=== PATIENT | female | born 1935 | race Caucasian/White ===

== ENCOUNTER 2016-04-01 23:34 | Emergency (ER) | payer OTHER ==
--- NOTE | 2016-04-02 01:09 | DIAGNOSTIC IMAGING REPORT ---
PROCEDURE: XR CHEST 1 VIEW INDICATION: SHORTNESS OF BREATH, initial encounter TECHNIQUE: Portable AP view 12:43 a.m. COMPARISON: Chest x-ray 08/27/2014 FINDINGS: Mild left basilar infiltrate. Heart and mediastinum are normal. Thorax is normal. IMPRESSION: 1. Left basilar pneumonia.
--- NOTE | 2016-04-02 06:08 | ED CLINICAL REPORT ---
Clinical Report - Physicians/Mid Levels Located Within [facility] [address] [place] [place] [address] 04/01/2016 23:35 Patient: SUSANA GRECO Time Seen: 23:37; initial patient contact. Arrived- By ambulance. Historian- patient. HISTORY OF PRESENT ILLNESS The patient has recovered. Chief Complaint: NEAR-SYNCOPE. This occurred just prior to arrival. Event was not witnessed. The patient had preceding symptoms of light-headedness. No preceding symptoms of nausea, dim vision, chest pain or abdominal pain. At time of event, she had just stood up. The patient felt faint. No loss of consciousness, seizure activity, incontinence or apnea noted. Did not collapse. Currently she has no symptoms. No injuries noted. Similar symptoms previously: None. Recent medical care: The patient was seen recently in the office (Dx'd w/ PNA and is on a Z pack). REVIEW OF SYSTEMS No headache, chest pain, palpitations, abdominal pain or vomiting. No diarrhea. She has had dizziness and weakness. All systems otherwise negative, except as recorded above. PAST HISTORY ( Unstable Angina. Headache. Hypercholesterolemia. Hypertension. Chest Pain. Arthritis. Gastroesophageal Reflux. Hyperlipidemia. SURGERIES: Appendectomy. Coronary Angioplasty. Esophageal Dilatation. Hysterectomy. Tonsillectomy.). Medications: Tramadol HCL Oral 50 mg. Crestor Oral 20 mg. Cyclobenzaprine HCl Oral 10 mg. OxyCODONE HCl Oral 5 mg. PredniSONE Oral 20 mg. Allergies: Flagyl. Penicillins. SOCIAL HISTORY Never smoker. No alcohol use or drug use. PHYSICAL EXAM Vital Signs: 04/01/2016 23:41 BP: 100/53. HR: 90. RR: 16. O2 saturation: 96%. Temp: 98 F. Have been reviewed. Hypotensive. Heart rate normal. Respiratory rate normal. Temperature normal. Oxygen saturation normal. Appearance: Alert. No acute distress. Eyes: Pupils equal, round and reactive to light. No nystagmus. Extraocular movements normal. ENT: Dry mucous membranes present. Neck: Normal inspection. CVS: Abnormal rhythm, which is irregularly irregular. Heart sounds normal. Rate normal. Respiratory: No respiratory distress. Mild rales in the left lung base posteriorly. Abdomen: Soft and nontender. No organomegaly. Skin: Poor skin turgor, mild. Skin warm and dry. Normal skin color. No rash. Extremities: No calf tenderness. No lower extremity edema. Neuro: Alert. Oriented X 3. Mood/affect normal. Speech normal. Cranial nerves normal (as tested). No cerebellar findings. No motor deficit. No sensory deficit. LABS, X-RAYS, AND EKG EKG: EKG time: (44). Atrial fibrillation (narrow-complex) (ventricular rate 93). Normal QRS complex. Normal axis. Normal ST and T waves, QT and QTc. Changes present when compared to prior EKG. (Aug 27 2014 Now has A fib). The study has been interpreted contemporaneously by me. The study has been independently viewed by me. The EKG appears to be a good tracing. I agree with and confirm the computer reading of the EKG. Interpretation time: 44. Chest X-ray: Patchy infiltrate in the left lower lobe. Consistent with pneumonia. Views: AP. Technique: good. The X-rays were independently viewed by me and interpreted contemporaneously by me. A comparison with prior films reveals that the findings are new. Interpretation time: 99. Laboratory Tests: UA-Culture if indicated: (YOSHI: 04/02/2016 02:15) ( MsgRcvd 04/02/2016 03:12) Final results Test Result Flag Units (Reference) URINE COLOR YELLOW URINE APPEARANCE CLEAR URINE GLUCOSE NEGATIVE (NEGATIVE) URINE BILIRUBIN NEGATIVE (NEGATIVE) URINE KETONE NEGATIVE (NEGATIVE) URINE SPECIFIC GRAVITY 1.025 (1.010-1.030) URINE PH 6.0 (5.0-8.0) URINE PROTEIN NEGATIVE (NEGATIVE) URINE UROBILINOGEN 0.2 EU/dL (0.2-1.0) URINE NITRITE NEGATIVE (NEGATIVE) URINE BLOOD 1+ (NEGATIVE) URINE LEUK ESTERASE NEGATIVE (NEGATIVE) URINE RBC 1-3 rbc/hpf (0-1) URINE WBC 0-1 wbc/hpf (0-1) URINE EPITHELIAL CELLS 3-5 EPI/hpf (0-5) URINE BACTERIA NONE SEEN (NONE SEEN) URINE COMMENT CULT NOT INDICATED URINE CULTURES ARE SET-UP BASED ON THE FOLLOWING CRITERIA:POSITIVE NITRITEPOSITIVE LEUKOCYTE ESTERASEGREATER THAN 10 WHITE BLOOD CELLSMODERATE (2+) OR GREATER BACTERIA CBC w Diff: (YOSHI: 04/02/2016 01:00) ( [facility] 01[facility]30) Final results Test Result Flag Units (Reference) WHITE BLOOD COUNT 8.1 K/uL (4.5-11.5) RED BLOOD COUNT 4.94 M/uL (4.00-5.20) HEMOGLOBIN 14.0 gm/dL (12.0-16.0) HEMATOCRIT 43.3 % (36.0-46.0) MEAN CELL VOLUME 88 fL (80-100) MEAN CORPUSCULAR HGB 28 pg (26-34) MEAN CORPUSCULAR HGB CONC 32 g/dL (31-37) RED CELL DISTRIBUTION WIDTH 14.9 H % (11.6-14.8) PLATELET COUNT 210 K/uL (150-400) NEUTROPHIL % 67.2 % (50-75) LYMPH % 22.5 L % (25-40) MONO % 9.8 % (3-14) EOSINOPHIL % 0.3 % (0-4) BASOPHIL % 0.2 % (0-2) [id number]: (YOSHI: 04/02/2016 01:00) ( [facility] 04/02/2016 01:54) Final results Test Result Flag Units (Reference) D-DIMER QUANTITATIVE 1.48 H ug/mLFEU (0.27-0.52) The primary value of this quantitative assay relates toits negative predictive value (i.e. exclusion) of pulmonaryembolism/deep vein thrombosis/DIC.Elevated levels of d-dimer may also occur with:, age, cancer, inflammation, liver disease,post-op, infection, hematoma, coronary disease, peripheralarteriopathy, bleeding disorders and thrombolytic treatment.Results should be correlated with other clinical andradiological data.Testing Methodology: Latex Immunoassay BNP: (YOSHI: 04/02/2016 01:00) ( [facility] 04/02/2016 02:03) Final results Test Result Flag Units (Reference) B-TYPE NATRIURETIC PEPTIDE 75.7 pg/ml (5-100) CHEM 13 PANEL: (YOSHI: 04/02/2016 01:00) ( MsgRcvd 04/02/2016 01:53) Final results Test Result Flag Units (Reference) GLUCOSE 126 H mg/dL (70-110) BUN 28 H mg/dL (7-18) CREATININE 1.5 H mg/dL (0.6-1.3) Estimated GFR 35.33 mL/min Estimated GFR- 42.83 mL/min Note: Persistent reduction over 3 months in eGFR<60 mL/min/1.73 m2 defines CKD. Patients with eGFR values>=60 mL/min/1.73 m2 may also have CKD if evidence ofpersistent proteinuria. Additional information may be foundat www.kidney.org. SODIUM 142 mmol/L (136-145) POTASSIUM 3.3 L mmol/L (3.5-5.1) CHLORIDE 108 H mmol/L (98-107) CARBON DIOXIDE 23 mmol/L (21-32) CALCIUM 8.2 L mg/dL (8.5-10.1) TOTAL PROTEIN 6.8 g/dL (6.4-8.2) ALBUMIN 3.1 L g/dL (3.3-5.0) BILIRUBIN, TOTAL 0.3 mg/dL (0.0-1.0) ALKALINE PHOSPHATASE 58 U/L (46-116) AST (SGOT) 31 U/L (15-37) ALT (SGPT) 26 U/L (12-78) CPK 412 H U/L (24-260) MAGNESIUM 2.2 mg/dL (1.8-2.4) CK-MB 1.8 ng/mL (0.5-3.2) %CKMB 0.4 % (0.0-4.0) TROPONIN I <0.05 ng/mL (0.00-1.5) TROPONIN REFERENCE RANGE:<0.1 NEGATIVE0.1-1.5 INDETERMINANT>1.5 POSITIVE . PROGRESS AND PROCEDURES Course of Care: 05:18 04/02/16. No hypoxia and no RVR. Pt states she has not been taking in enough fluids and feels much better and wants to go home after I recommended admission. 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 CHADDS Vasc 2 score is 4, will start Xarelto. Evaluation after repeat exam and IV fluids. Symptoms much better. Disposition: Discharged home in good and improved condition. Condition: good. CLINICAL IMPRESSION Vasovagal syncope .12 lead EKG performed. New onset atrial fibrillation. The patient has one or more high risk factors and/or two or more moderate risk factors for thromboembolism. The patient is prescribed warfarin or another FDA approved anticoagulant. Bacterial pneumonia. Empiric antibiotics given- prescribed. (Pt already on Azithromycin). No hypoxemia, respiratory failure or sepsis. Mild dehydration INSTRUCTIONS Your Current Medications: CONTINUE TAKING THE FOLLOWING MEDICATIONS: Cyclobenzaprine HCl Oral : 10 mg. Tramadol HCL Oral : 50 mg. Prescription Medications: Xarelto 20 mg 1 PO q day Disp # 15 No refills. Follow-up: Follow up with your doctor in one day. Call for an appointment. Screening today revealed the patient's blood pressure to be in the normal range. (Electronically signed by Anand Granda Dr. 04/02/2016 10:49)
--- NOTE | 2016-04-02 06:08 | ED NURSING NOTES ---
Clinical Report - Nurses [facility] [address] [place] [address] 04/01/2016 23:35 Patient: SUSANA GRECO TRIAGE Triage time 2340. Acuity: LEVEL 3. Chief Complaint: DIZZINESS and (ground level fall). --23:50 Grover Herron R.N. 23:40 04/01/16. BP: 100/53. HR: 90. RR: 16. O2 saturation: 96%. Temp: 98 F. Pain level now 0/10. --23:50 Grover Herron R.N. Weight: 90.7 kg stated. Height/Length: 66 inches Per Patient. BMI: 32.3. --23:53 Grover Herron R.N. Medications AmLODIPine Besylate Oral. --06:22 Grover Herron R.N. Atorvastatin Calcium Oral. --06:22 Grover Herron R.N. Azithromycin Oral. --06:25 Grover Herron R.N. Cyclobenzaprine HCl Oral 10 mg. --23:44 Grover Herron R.N. Tramadol HCL Oral 50 mg. --23:44 Grover Herron R.N. The following entry was struck by Grover Herron R.N., 06:24 (04/02/16) Reason - other(changed to atorvastatin). <<STRICKEN ENTRY-- Crestor Oral 20 mg. --23:44 Grover eHrron R.N. --END STRIKE>> The following entry was struck by Grover Herron R.N., 06:23 (04/02/16) Reason - other(discontinued). <<STRICKEN ENTRY-- OxyCODONE HCl Oral 5 mg. --23:44 Grover Herron R.N. --END STRIKE>> The following entry was struck by Grover Herron R.N., 06:23 (04/02/16) Reason - other(discontinued). <<STRICKEN ENTRY-- PredniSONE Oral 20 mg. --23:44 Grover Herron R.N. --END STRIKE>>. Allergies Flagyl. Penicillins. --23:44 Grover Herron R.N. History Arrived by EMS. Historian: patient. This started yesterday. ( dx pna yesterday at [facility]. sent home on a/b's. pt fell when trying adl's friend checking on her called 911.). She has had weakness. 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 PAST MEDICAL HX: ( pt lives alone with caregiver 2x/wk and friends that check in on her daily. no previous hx of afib, pt arrives to ed in afib.). SOCIAL HX: No infectious disease exposure. NUTRITIONAL RISK ASSESSMENT: The nutritional risk assessment revealed no deficiencies. FUNCTIONAL ASSESSMENT: Functional assessment: no impairments noted. LEARNING NEEDS ASSESSMENT: The learning needs assessment revealed no barriers. FALL RISK ASSESSMENT: Fall risk assessment completed. Risk factors identified include dizziness and patient age greater than 65 years, history of fall and impairment of mobility. Fall interventions initiated. Patient placed on stretcher. Side rails up x2. Bed in low position. SKIN INTEGRITY ASSESSMENT: Skin integrity risk assessment completed. No skin integrity risk identified. --23:50 Grover Herron R.N. PROBLEMS: Unstable Angina. Headache. Hypercholesterolemia. Hypertension. Chest Pain. Arthritis. Gastroesophageal Reflux. Hyperlipidemia. --23:45 Grover Herron R.N. ADDITIONAL SURGERIES: Appendectomy. Coronary Angioplasty. Esophageal Dilatation. Hysterectomy. Tonsillectomy. --23:45 Grover Herron R.N. Interventions ID band on patient. --23:50 Grover Herron R.N. PHYSICAL ASSESSMENT GENERAL / NEURO / PSYCH: Oriented X 4. Appears in no acute distress. Alert. Speech within normal limits. HEENT: No facial asymmetry noted. Pupils equal, round and reactive to light. RESPIRATORY: Respirations not labored. CVS: Capillary refill less than 2 seconds. GI / : Abdomen soft and nontender. SKIN: Skin is warm and dry. --23:50 Grover Herron R.N. NURSING PROGRESS NOTES Monitoring of patient in place. Head of bed elevated. Reassurance given. Patient identifiers checked. Call light placed in reach. Side rails up x 2. Bed placed in lowest position. Brakes of bed on. --23:54 Grover Herron R.N. EKG time: (0045 AM). EKG was ordered, performed by a tech and shown to the ED physician. --00:50 Shira Valdez 01:12 04/02/2016 Site #1 started prior to arrival by EMS via IV in the right antecubital space with an 18g angiocath, with good blood return. Blood drawn: rainbow set. Labeled in the presence of the patient and sent to the lab. Saline lock flushed with saline. --01:12 Grover Herron R.N. 01:12 04/02/2016 Started bag #1 1000 mL IV Fluids IV NS (Saline); bolus of 1000 mL wide open via site #1. Allergies verified and confirmed 5 rights. IV patency established. IV site checked: no pain, redness, or swelling. IV flushed thoroughly pre- and post-medication administration. --01:12 Grover Herron R.N. 04:42 04/02/2016 Started bag #1 1000 mL IV Fluids IV NS (Saline); bolus of 1000 mL wide open via site #1 --04:57 Grover Herron R.N. Reassurance given. The patient reports no complaints and she is calm. GENERAL / NEURO / PSYCH: Denies anxiety, restlessness or headache. Patient is calm and cooperative but does not appear agitated. Mood/affect appears normal. Alert. Oriented X 4. No decreased awareness. RESPIRATORY: Denies difficulty breathing. Respiratory distress present. CVS: Denies chest pain. SKIN: Skin is warm and dry. Call light placed in reach. Side rails up x 1. Brakes of bed on. Brakes of chair on. --07:24 Angelia Sparks R.N. 07:21 04/02/16. BP: 112/43 taken on the left arm, via an automated monitor, while sitting. HR: 98. RR: 15. O2 saturation: 98% on room air. Temp: 98 F (oral). Pain level now: 0/10. --07:24 Angelia Sparks R.N. DISPOSITION / DISCHARGE 07:00 04/02/16. BP: 112/43. HR: 88. RR: 16. O2 saturation: 98% on room air. Temp: 88 F. Pain level now: 010. --19:52 Ezio Albrecht R.N. Departure time: 07. --19:52 Ezio Albrecht R.N. 07:10. Condition at departure: improved. No learning barriers present. Discharge instructions provided and reviewed with the patient. Reviewed medication(s) dosing information (prescription given to patient). Reviewed referral to family practice for followup. Patient verbalized understanding. Written instructions provided in Indian. The patient was discharged by the physician. She was discharged home and accompanied by family. She left the Emergency Department ambulatory and via private vehicle. Family member driving. --19:53 Ezio Albrecht R.N. Locked/Released at 04/02/2016 19:53 by Ezio Albrecht R.N.
--- NOTE | 2016-04-02 06:08 | ED ORDER SUMMARY ---
..... Patient: SUSANA GRECO OrderSheet [facility] VisitID: [id number] [place] [address] 80y, F Registration Date/Time: 04/01/2016 ORDER SHEET Weight: 90.7 kg (stated) Allergies: Flagyl, Penicillins GENERAL ORDERS: Chest 1V Urgent (00:35 04/02/2016 Amaya Reyes) (Ack 0:38 AMcQuoid ER Tech1) (0:56 GUnger) Cardiac Panel Stat (00:36 04/02/2016 Amaya Reyes) (Ack 0:38 AMcQuoid ER Tech1) (1:11 Azeemard R.N.) UA-Culture if indicated Urgent (00:36 04/02/2016 Amaya Reyes) (Ack 0:38 AMcQuoid ER Tech1) (2:28 Varun R.N.) D-Dimer Urgent (00:36 04/02/2016 Amaya Reyes) (Ack 0:38 AMcQuoid ER Tech1) (1:11 Varun R.N.) BNP Urgent (00:36 04/02/2016 Amaya Reyes) (Ack 0:38 AMcQuoid ER Tech1) (1:12 LIATullard R.N.) EKG - ER Stat (00:36 04/02/2016 Amaya Reyes) (Ack 0:38 AMcQuoid ER Tech1) (0:49 Claire) MEDICATION ORDERS: IV FLUIDS: IV NS : initial bolus none -, then 1000 mL/hr for X1 (NOW) (00:35 04/02/2016 Amaya Reyes) (1:12 LIATullard R.N.) IV NS : initial bolus none -, then 1000 mL/hr for X1 (NOW) (04:34 04/02/2016 Amaya Reyes) (4:57 LIATullbrooklynn R.N.) ORDER SHEET NOTES: [Electronically signed by Anand Granda Dr. (10:49 04/02/2016)] [Electronically signed by Ezio Albrecht R.N. (19:53 04/02/2016)] [Electronically locked/signed by Ezio Albrecht R.N. (19:53 04/02/2016)]
--- NOTE | 2016-04-02 06:08 | ED ORDER SUMMARY ---
..... Patient: SUSANA GRECO OrderSheet [facility] VisitID: [id number] [place] [address] 80y, F Registration Date/Time: 04/01/2016 ORDER SHEET Weight: 90.7 kg (stated) Allergies: Flagyl, Penicillins GENERAL ORDERS: Chest 1V Urgent (00:35 04/02/2016 Amaya Reyes) (Ack 0:38 AMcQuoid ER Tech1) (0:56 GUnger) Cardiac Panel Stat (00:36 04/02/2016 Amaya Reyes) (Ack 0:38 AMcQuoid ER Tech1) (1:11 Azeemard R.N.) UA-Culture if indicated Urgent (00:36 04/02/2016 Amaya Reyes) (Ack 0:38 AMcQuoid ER Tech1) (2:28 Varun R.N.) D-Dimer Urgent (00:36 04/02/2016 Amaya Reyes) (Ack 0:38 AMcQuoid ER Tech1) (1:11 Varun R.N.) BNP Urgent (00:36 04/02/2016 Amaya Reyes) (Ack 0:38 AMcQuoid ER Tech1) (1:12 LIATullard R.N.) EKG - ER Stat (00:36 04/02/2016 Amaya Reyes) (Ack 0:38 AMcQuoid ER Tech1) (0:49 Claire) MEDICATION ORDERS: IV FLUIDS: IV NS : initial bolus none -, then 1000 mL/hr for X1 (NOW) (00:35 04/02/2016 Amaya Reyes) (1:12 LIATullard R.N.) IV NS : initial bolus none -, then 1000 mL/hr for X1 (NOW) (04:34 04/02/2016 Amaya Reyes) (4:57 LIATullbrooklynn R.N.) ORDER SHEET NOTES: [Electronically signed by Anand Granda Dr. (10:49 04/02/2016)] [Electronically signed by Ezio Albrecht R.N. (19:53 04/02/2016)] [Electronically locked/signed by Ezio Albrecht R.N. (19:53 04/02/2016)]
--- NOTE | 2016-04-02 06:08 | ED NURSING NOTES ---
Clinical Report - Nurses [facility] [address] [place] [address] 04/01/2016 23:35 Patient: SUSANA GRECO TRIAGE Triage time 2340. Acuity: LEVEL 3. Chief Complaint: DIZZINESS and (ground level fall). --23:50 rGover Herron R.N. 23:40 04/01/16. BP: 100/53. HR: 90. RR: 16. O2 saturation: 96%. Temp: 98 F. Pain level now 0/10. --23:50 Grover Herron R.N. Weight: 90.7 kg stated. Height/Length: 66 inches Per Patient. BMI: 32.3. --23:53 Grover Herron R.N. Medications AmLODIPine Besylate Oral. --06:22 Grover Herron R.N. Atorvastatin Calcium Oral. --06:22 Grover Herron R.N. Azithromycin Oral. --06:25 Grover Herron R.N. Cyclobenzaprine HCl Oral 10 mg. --23:44 Grover Herron R.N. Tramadol HCL Oral 50 mg. --23:44 Grover Herron R.N. The following entry was struck by Grover Herron R.N., 06:24 (04/02/16) Reason - other(changed to atorvastatin). <<STRICKEN ENTRY-- Crestor Oral 20 mg. --23:44 Grover Herron R.N. --END STRIKE>> The following entry was struck by Grover Herron R.N., 06:23 (04/02/16) Reason - other(discontinued). <<STRICKEN ENTRY-- OxyCODONE HCl Oral 5 mg. --23:44 Grover Herron R.N. --END STRIKE>> The following entry was struck by Grover Herron R.N., 06:23 (04/02/16) Reason - other(discontinued). <<STRICKEN ENTRY-- PredniSONE Oral 20 mg. --23:44 Grover Herron R.N. --END STRIKE>>. Allergies Flagyl. Penicillins. --23:44 Grover Herron R.N. History Arrived by EMS. Historian: patient. This started yesterday. ( dx pna yesterday at [facility] [place]. sent home on a/b's. pt fell when trying adl's friend checking on her called 911.). She has had weakness. 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 PAST MEDICAL HX: ( pt lives alone with caregiver 2x/wk and friends that check in on her daily. no previous hx of afib, pt arrives to ed in afib.). SOCIAL HX: No infectious disease exposure. NUTRITIONAL RISK ASSESSMENT: The nutritional risk assessment revealed no deficiencies. FUNCTIONAL ASSESSMENT: Functional assessment: no impairments noted. LEARNING NEEDS ASSESSMENT: The learning needs assessment revealed no barriers. FALL RISK ASSESSMENT: Fall risk assessment completed. Risk factors identified include dizziness and patient age greater than 65 years, history of fall and impairment of mobility. Fall interventions initiated. Patient placed on stretcher. Side rails up x2. Bed in low position. SKIN INTEGRITY ASSESSMENT: Skin integrity risk assessment completed. No skin integrity risk identified. --23:50 Grover Herron R.N. PROBLEMS: Unstable Angina. Headache. Hypercholesterolemia. Hypertension. Chest Pain. Arthritis. Gastroesophageal Reflux. Hyperlipidemia. --23:45 Grover Herron R.N. ADDITIONAL SURGERIES: Appendectomy. Coronary Angioplasty. Esophageal Dilatation. Hysterectomy. Tonsillectomy. --23:45 Grover Herron R.N. Interventions ID band on patient. --23:50 Grover Herron R.N. PHYSICAL ASSESSMENT GENERAL / NEURO / PSYCH: Oriented X 4. Appears in no acute distress. Alert. Speech within normal limits. HEENT: No facial asymmetry noted. Pupils equal, round and reactive to light. RESPIRATORY: Respirations not labored. CVS: Capillary refill less than 2 seconds. GI / : Abdomen soft and nontender. SKIN: Skin is warm and dry. --23:50 Grover Herron R.N. NURSING PROGRESS NOTES Monitoring of patient in place. Head of bed elevated. Reassurance given. Patient identifiers checked. Call light placed in reach. Side rails up x 2. Bed placed in lowest position. Brakes of bed on. --23:54 Grover eHrron R.N. EKG time: (0045 AM). EKG was ordered, performed by a tech and shown to the ED physician. --00:50 Shira Valdez 01:12 04/02/2016 Site #1 started prior to arrival by EMS via IV in the right antecubital space with an 18g angiocath, with good blood return. Blood drawn: rainbow set. Labeled in the presence of the patient and sent to the lab. Saline lock flushed with saline. --01:12 Grover Herron R.N. 01:12 04/02/2016 Started bag #1 1000 mL IV Fluids IV NS (Saline); bolus of 1000 mL wide open via site #1. Allergies verified and confirmed 5 rights. IV patency established. IV site checked: no pain, redness, or swelling. IV flushed thoroughly pre- and post-medication administration. --01:12 Grover Herron R.N. 04:42 04/02/2016 Started bag #1 1000 mL IV Fluids IV NS (Saline); bolus of 1000 mL wide open via site #1 --04:57 Grover Herron R.N. Reassurance given. The patient reports no complaints and she is calm. GENERAL / NEURO / PSYCH: Denies anxiety, restlessness or headache. Patient is calm and cooperative but does not appear agitated. Mood/affect appears normal. Alert. Oriented X 4. No decreased awareness. RESPIRATORY: Denies difficulty breathing. Respiratory distress present. CVS: Denies chest pain. SKIN: Skin is warm and dry. Call light placed in reach. Side rails up x 1. Brakes of bed on. Brakes of chair on. --07:24 Angelia Sparks R.N. 07:21 04/02/16. BP: 112/43 taken on the left arm, via an automated monitor, while sitting. HR: 98. RR: 15. O2 saturation: 98% on room air. Temp: 98 F (oral). Pain level now: 0/10. --07:24 Angelia Sparks R.N. DISPOSITION / DISCHARGE 07:00 04/02/16. BP: 112/43. HR: 88. RR: 16. O2 saturation: 98% on room air. Temp: 88 F. Pain level now: 010. --19:52 Ezio Albrecht R.N. Departure time: 07. --19:52 Ezio Albrecht R.N. 07:10. Condition at departure: improved. No learning barriers present. Discharge instructions provided and reviewed with the patient. Reviewed medication(s) dosing information (prescription given to patient). Reviewed referral to family practice for followup. Patient verbalized understanding. Written instructions provided in Croatian. The patient was discharged by the physician. She was discharged home and accompanied by family. She left the Emergency Department ambulatory and via private vehicle. Family member driving. --19:53 Ezio Albrecht R.N. Locked/Released at 04/02/2016 19:53 by Ezio Albrecht R.N.
--- NOTE | 2016-04-02 06:08 | ED CLINICAL REPORT ---
Clinical Report - Physicians/[facility] [address] [place] [address] 04/01/2016 23:35 Patient: SUSANA GRECO Time Seen: 23:37; initial patient contact. Arrived- By ambulance. Historian- patient. HISTORY OF PRESENT ILLNESS The patient has recovered. Chief Complaint: NEAR-SYNCOPE. This occurred just prior to arrival. Event was not witnessed. The patient had preceding symptoms of light-headedness. No preceding symptoms of nausea, dim vision, chest pain or abdominal pain. At time of event, she had just stood up. The patient felt faint. No loss of consciousness, seizure activity, incontinence or apnea noted. Did not collapse. Currently she has no symptoms. No injuries noted. Similar symptoms previously: None. Recent medical care: The patient was seen recently in the office (Dx'd w/ PNA and is on a Z pack). REVIEW OF SYSTEMS No headache, chest pain, palpitations, abdominal pain or vomiting. No diarrhea. She has had dizziness and weakness. All systems otherwise negative, except as recorded above. PAST HISTORY ( Unstable Angina. Headache. Hypercholesterolemia. Hypertension. Chest Pain. Arthritis. Gastroesophageal Reflux. Hyperlipidemia. SURGERIES: Appendectomy. Coronary Angioplasty. Esophageal Dilatation. Hysterectomy. Tonsillectomy.). Medications: Tramadol HCL Oral 50 mg. Crestor Oral 20 mg. Cyclobenzaprine HCl Oral 10 mg. OxyCODONE HCl Oral 5 mg. PredniSONE Oral 20 mg. Allergies: Flagyl. Penicillins. SOCIAL HISTORY Never smoker. No alcohol use or drug use. PHYSICAL EXAM Vital Signs: 04/01/2016 23:41 BP: 100/53. HR: 90. RR: 16. O2 saturation: 96%. Temp: 98 F. Have been reviewed. Hypotensive. Heart rate normal. Respiratory rate normal. Temperature normal. Oxygen saturation normal. Appearance: Alert. No acute distress. Eyes: Pupils equal, round and reactive to light. No nystagmus. Extraocular movements normal. ENT: Dry mucous membranes present. Neck: Normal inspection. CVS: Abnormal rhythm, which is irregularly irregular. Heart sounds normal. Rate normal. Respiratory: No respiratory distress. Mild rales in the left lung base posteriorly. Abdomen: Soft and nontender. No organomegaly. Skin: Poor skin turgor, mild. Skin warm and dry. Normal skin color. No rash. Extremities: No calf tenderness. No lower extremity edema. Neuro: Alert. Oriented X 3. Mood/affect normal. Speech normal. Cranial nerves normal (as tested). No cerebellar findings. No motor deficit. No sensory deficit. LABS, X-RAYS, AND EKG EKG: EKG time: (44). Atrial fibrillation (narrow-complex) (ventricular rate 93). Normal QRS complex. Normal axis. Normal ST and T waves, QT and QTc. Changes present when compared to prior EKG. (Aug 27 2014 Now has A fib). The study has been interpreted contemporaneously by me. The study has been independently viewed by me. The EKG appears to be a good tracing. I agree with and confirm the computer reading of the EKG. Interpretation time: 44. Chest X-ray: Patchy infiltrate in the left lower lobe. Consistent with pneumonia. Views: AP. Technique: good. The X-rays were independently viewed by me and interpreted contemporaneously by me. A comparison with prior films reveals that the findings are new. Interpretation time: 99. Laboratory Tests: UA-Culture if indicated: (YOSHI: 04/02/2016 02:15) ( MsgRcvd 04/02/2016 03:12) Final results Test Result Flag Units (Reference) URINE COLOR YELLOW URINE APPEARANCE CLEAR URINE GLUCOSE NEGATIVE (NEGATIVE) URINE BILIRUBIN NEGATIVE (NEGATIVE) URINE KETONE NEGATIVE (NEGATIVE) URINE SPECIFIC GRAVITY 1.025 (1.010-1.030) URINE PH 6.0 (5.0-8.0) URINE PROTEIN NEGATIVE (NEGATIVE) URINE UROBILINOGEN 0.2 EU/dL (0.2-1.0) URINE NITRITE NEGATIVE (NEGATIVE) URINE BLOOD 1+ (NEGATIVE) URINE LEUK ESTERASE NEGATIVE (NEGATIVE) URINE RBC 1-3 rbc/hpf (0-1) URINE WBC 0-1 wbc/hpf (0-1) URINE EPITHELIAL CELLS 3-5 EPI/hpf (0-5) URINE BACTERIA NONE SEEN (NONE SEEN) URINE COMMENT CULT NOT INDICATED URINE CULTURES ARE SET-UP BASED ON THE FOLLOWING CRITERIA:POSITIVE NITRITEPOSITIVE LEUKOCYTE ESTERASEGREATER THAN 10 WHITE BLOOD CELLSMODERATE (2+) OR GREATER BACTERIA CBC w Diff: (YOSHI: 04/02/2016 01:00) ( [facility] 04/02/2016 01:30) Final results Test Result Flag Units (Reference) WHITE BLOOD COUNT 8.1 K/uL (4.5-11.5) RED BLOOD COUNT 4.94 M/uL (4.00-5.20) HEMOGLOBIN 14.0 gm/dL (12.0-16.0) HEMATOCRIT 43.3 % (36.0-46.0) MEAN CELL VOLUME 88 fL (80-100) MEAN CORPUSCULAR HGB 28 pg (26-34) MEAN CORPUSCULAR HGB CONC 32 g/dL (31-37) RED CELL DISTRIBUTION WIDTH 14.9 H % (11.6-14.8) PLATELET COUNT 210 K/uL (150-400) NEUTROPHIL % 67.2 % (50-75) LYMPH % 22.5 L % (25-40) MONO % 9.8 % (3-14) EOSINOPHIL % 0.3 % (0-4) BASOPHIL % 0.2 % (0-2) [id number]: (YOSHI: 04/02/2016 01:00) ( [facility] 04/02/2016 01:54) Final results Test Result Flag Units (Reference) D-DIMER QUANTITATIVE 1.48 H ug/mLFEU (0.27-0.52) The primary value of this quantitative assay relates toits negative predictive value (i.e. exclusion) of pulmonaryembolism/deep vein thrombosis/DIC.Elevated levels of d-dimer may also occur with:, age, cancer, inflammation, liver disease,post-op, infection, hematoma, coronary disease, peripheralarteriopathy, bleeding disorders and thrombolytic treatment.Results should be correlated with other clinical andradiological data.Testing Methodology: Latex Immunoassay BNP: (YOSHI: 04/02/2016 01:00) ( [facility] 04/02/2016 02:03) Final results Test Result Flag Units (Reference) B-TYPE NATRIURETIC PEPTIDE 75.7 pg/ml (5-100) CHEM 13 PANEL: (YOSHI: 04/02/2016 01:00) ( MsgRcvd 04/02/2016 01:53) Final results Test Result Flag Units (Reference) GLUCOSE 126 H mg/dL (70-110) BUN 28 H mg/dL (7-18) CREATININE 1.5 H mg/dL (0.6-1.3) Estimated GFR 35.33 mL/min Estimated GFR- 42.83 mL/min Note: Persistent reduction over 3 months in eGFR<60 mL/min/1.73 m2 defines CKD. Patients with eGFR values>=60 mL/min/1.73 m2 may also have CKD if evidence ofpersistent proteinuria. Additional information may be foundat www.kidney.org. SODIUM 142 mmol/L (136-145) POTASSIUM 3.3 L mmol/L (3.5-5.1) CHLORIDE 108 H mmol/L (98-107) CARBON DIOXIDE 23 mmol/L (21-32) CALCIUM 8.2 L mg/dL (8.5-10.1) TOTAL PROTEIN 6.8 g/dL (6.4-8.2) ALBUMIN 3.1 L g/dL (3.3-5.0) BILIRUBIN, TOTAL 0.3 mg/dL (0.0-1.0) ALKALINE PHOSPHATASE 58 U/L (46-116) AST (SGOT) 31 U/L (15-37) ALT (SGPT) 26 U/L (12-78) CPK 412 H U/L (24-260) MAGNESIUM 2.2 mg/dL (1.8-2.4) CK-MB 1.8 ng/mL (0.5-3.2) %CKMB 0.4 % (0.0-4.0) TROPONIN I <0.05 ng/mL (0.00-1.5) TROPONIN REFERENCE RANGE:<0.1 NEGATIVE0.1-1.5 INDETERMINANT>1.5 POSITIVE . PROGRESS AND PROCEDURES Course of Care: 05:18 04/02/16. No hypoxia and no RVR. Pt states she has not been taking in enough fluids and feels much better and wants to go home after I recommended admission. 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 CHADDS Vasc 2 score is 4, will start Xarelto. Evaluation after repeat exam and IV fluids. Symptoms much better. Disposition: Discharged home in good and improved condition. Condition: good. CLINICAL IMPRESSION Vasovagal syncope .12 lead EKG performed. New onset atrial fibrillation. The patient has one or more high risk factors and/or two or more moderate risk factors for thromboembolism. The patient is prescribed warfarin or another FDA approved anticoagulant. Bacterial pneumonia. Empiric antibiotics given- prescribed. (Pt already on Azithromycin). No hypoxemia, respiratory failure or sepsis. Mild dehydration INSTRUCTIONS Your Current Medications: CONTINUE TAKING THE FOLLOWING MEDICATIONS: Cyclobenzaprine HCl Oral : 10 mg. Tramadol HCL Oral : 50 mg. Prescription Medications: Xarelto 20 mg 1 PO q day Disp # 15 No refills. Follow-up: Follow up with your doctor in one day. Call for an appointment. Screening today revealed the patient's blood pressure to be in the normal range. (Electronically signed by Anand Granda Dr. 04/02/2016 10:49)
--- NOTE | 2016-04-02 19:54 | ED MAR SUMMARY ---
..... Medication Administration Record [facility] [address] [place] [address] Patient: SUSANA GRECO Visit ID: [id number] 80y, F Weight: 90.7 kg Height/Length: 66 in BMI: 32.3 ALLERGIES: Flagyl, Penicillins Start 01:12 04/02/2016 Grover Herron R.N. Medication Administered: IV NS (SALINE), Dose: IV Fluids, Bolus: 1000 mL wide open, Dispensed: 1000 mL bag, Site: #1 right AC. Medication Ordered: IV NS : initial bolus none -, then 1000 mL/hr for X1 (NOW). Start 04:42 04/02/2016 Grover Herron R.N. Medication Administered: IV NS (SALINE), Dose: IV Fluids, Bolus: 1000 mL wide open, Dispensed: 1000 mL bag, Site: #1 right AC. Medication Ordered: IV NS : initial bolus none -, then 1000 mL/hr for X1 (NOW).
--- NOTE | 2016-04-02 19:54 | ED MED RECONCILIATION SUMMARY ---
Patient: SUSANA GRECO Medication Reconciliation Report [facility] VisitID: [id number] [address] [place] [address] 80y, F Registration Date/Time: 04/01/2016 Weight: 90.7 kg Height/Length: 66 in. BMI: 32.3 ALLERGIES: Flagyl, Penicillins The patient's Home Medications are listed below: CONTINUE TAKING THE FOLLOWING MEDICATIONS: Cyclobenzaprine HCl Oral 10 mg Tramadol HCL Oral 50 mg THE FOLLOWING MEDICATIONS NEED TO BE RECONCILED: AmLODIPine Besylate Oral Atorvastatin Calcium Oral Azithromycin Oral The source(s) of the original Home Medication information: Not obtained. The following Medications were given to the patient in the Emergency Department: IV NS IV Fluids bolus 1000 mL wide open, administered: 04/02/2016 1:12:00 AM IV NS IV Fluids bolus 1000 mL wide open, administered: 04/02/2016 4:42:00 AM The following Medications were prescribed to the patient: Xarelto 20 mg1 PO q dayDisp # 15No refills. -- Anand Granda Dr.
--- NOTE | 2016-04-02 19:54 | ED MAR SUMMARY ---
..... Medication Administration Record [facility] [address] [place] [address] Patient: SUSANA GRECO Visit ID: [id number] 80y, F Weight: 90.7 kg Height/Length: 66 in BMI: 32.3 ALLERGIES: Flagyl, Penicillins Start 01:12 04/02/2016 Grover Herron R.N. Medication Administered: IV NS (SALINE), Dose: IV Fluids, Bolus: 1000 mL wide open, Dispensed: 1000 mL bag, Site: #1 right AC. Medication Ordered: IV NS : initial bolus none -, then 1000 mL/hr for X1 (NOW). Start 04:42 04/02/2016 Grover Herron R.N. Medication Administered: IV NS (SALINE), Dose: IV Fluids, Bolus: 1000 mL wide open, Dispensed: 1000 mL bag, Site: #1 right AC. Medication Ordered: IV NS : initial bolus none -, then 1000 mL/hr for X1 (NOW).
--- NOTE | 2016-04-02 19:54 | ED DISCHARGE INSTRUCTIONS ---
Patient: SUSANA GRECO General Instructions [facility] VisitID: [id number] [place] [address] 80y, F Registration Date/Time: 04/01/2016 Vasovagal syncope .12 lead EKG performed. New onset atrial fibrillation. The patient has one or more high risk factors and/or two or more moderate risk factors for thromboembolism. The patient is prescribed warfarin or another FDA approved anticoagulant. Bacterial pneumonia. Empiric antibiotics given- prescribed. (Pt already on Azithromycin). No hypoxemia, respiratory failure or sepsis. Mild dehydration INSTRUCTIONS Your Current Medications: CONTINUE TAKING THE FOLLOWING MEDICATIONS: Cyclobenzaprine HCl Oral : 10 mg. Tramadol HCL Oral : 50 mg. Prescription Medications: Xarelto 20 mg 1 PO q day Disp # 15 No refills. Follow-up: Follow up with your doctor in one day. Call for an appointment. Screening today revealed the patient's blood pressure to be in the normal range. ADDITIONAL INFORMATION Fainting:Vagal Reaction Fainting (syncope) is a temporary loss of consciousness ("passing out"). It occurs when blood flow to the brain is reduced. Your doctor believes that your episode was due to a vagal reaction. This condition is not a sign of serious disease. A vagal reaction is a reflex response that causes the pulse to slow down or the blood vessels to dilate. This causes the blood pressure to fall, reducing the blood flow to the brain if you are standing or sitting. That results in dizziness, near-fainting or fainting. Lying down usually stops the reaction within 60 seconds. This reflex response can occur during sudden fear, severe pain, emotional stress, overexertion, overheating, hunger, nausea or vomiting, prolonged standing or standing up after sitting or lying for a long time. Home Care: 1) Rest today and resume your normal activities as soon as you are feeling back to normal. 2) If you become light-headed or dizzy, lie down immediately or sit with your head lowered between your knees. Follow Up with your doctor as instructed. Get Prompt Medical Attention if any of the following occur: -- Another fainting spell occurs, which is not explained by the common causes listed above -- Chest, arm, neck, jaw, back or abdominal pain -- Shortness of breath -- Severe headache or seizure -- Blood in vomit, stools (black or red color) -- Unexpected vaginal bleeding -- Palpitations (very rapid or very slow or irregular heart beat) -- Signs of stroke: Weakness of an arm or leg or one side of the face Difficulty with speech or vision Extreme drowsiness, confusion, dizziness or fainting Arrhythmia Electrical impulses cause the normal heart to beat 60 to 100 times a minute. These impulses come from a natural pacemaker deep inside the heart muscle. Each impulse causes the heart muscle to contract. This causes the blood to flow through the heart and out to the tissues and organs of your body. An arrhythmia is a change from the normal speed or pattern of these electrical impulses. This can cause the heart to beat too fast (tachycardia); or too slow (bradycardia); or in an unsteady pattern (irregular rhythm). Symptoms of arrhythmias Different people experience arrhythmias differently. Sometimes they may not have symptoms, but just notice a change in their pulse. Symptoms can include: Fluttering feeling in the chest Shortness of breath Chest pain or pressure Lightheadedness or dizziness Fainting or nearly fainting Palpitations Tiredness, fatigue, or weakness Causes of arrhythmias Arrhythmias are most often due to heart disease such as: Coronary artery disease (arteriosclerosis) Disease of the heart valves Enlarged heart High blood pressure Heart failure Other causes ofarrhythmia include: Certain medicines (such as asthma inhalers and decongestants) Some herbal supplements Cardiac stimulant drugs (such as cocaine, amphetamine, diet pills, certain decongestant cold medicines, caffeine, and nicotine) Excessive alcohol use Medical conditions such as thyroid disease, anemia, anxiety, and panic disorder Arrythmias can often be prevented. The cause and type of arrhythmia determines the best treatment. Sometimes your doctor may want to monitor your heart rate over a 24-hour period or longer. This can help identify the cause of your arrhythmia and find the best treatment. This can be done with a Holter monitor,a portable EKG recording device attached by wires to your chest. You can carry this with you as you perform your routine activities during the monitoring period. Home care Avoid cardiac stimulants (such as cocaine, amphetamine, diet pills, certain decongestant cold medicines, caffeine, and nicotine). If you smoke, stop smoking. Contact your doctor or a local stop-smoking program for help. Tell your doctor about any prescription, [id number] or herbal medicines you take. These may be affecting your heart rhythm. Follow-up care Follow up with your health care provider or as advised by our staff. If a Holter monitor has been recommended, contact the cardiologistyou have been referred toas soon as you canpick up the device. Other outpatient tests may also be arranged for you at that time. Call 911 This is the fastest and safest way to get to the emergency department. The paramedics can also start treatment on the way to the hospital, if needed. Don'twait until your symptoms are severe to call 911. Other reasons to call 911 besides chest pain include: Chest, shoulder, arm, neck, or back pain Shortness of breath Feeling lightheaded, faint, or dizzy Rapid heart beat Slower than usual heart rate compared to your normal Angina withweakness, dizziness, fainting, heavy sweating, nausea, or vomiting Extreme drowsiness, or confusion Weakness of an arm or leg or one side of the face Difficulty with speech or vision When to seek medical care Remember, things are not always like they are on TV. Sometimes it is not so obvious. You may only feel weak or just "not right." If it is not clear or if you have any doubt, call for advice. Seek help for chest pain, or it feels different from usual, even if your symptoms are mild. Do not drive yourself. Have someone else drive. If no one can drive you, call 911. If your doctor has given you medicines to take when you have symptoms, take them, but do not delay getting help while trying to find them. Do not delay. Fast diagnosis and treatment can prevent or limit the amount of heart damage during a heart attack or stroke. Do not go to your doctor's ofice or a clinic because they will not be able to provide all of the testing or treatment required for this condition. Dehydration (Adult) Dehydration occurs when your body loses too much fluid. This may be the result of vomiting a lot or from diarrhea,sweating a lot, or a high fever. It may also happen if you dont drink enough fluid when youre sick. Misuse of diuretics (water pills) can also be a cause. Symptoms include thirst and feeling dizzy, weak, fatigued, or very drowsy. The diet described below is usually enough to treat most cases. Sometimes you may needmedicine. Home Care Follow these guidelines for home care: Drink at least 12 8-ounce glasses of fluid every day to overcome the dehydration. Fluid may include water; orange juice; lemonade; apple, grape, and cranberry juice; clear fruit drinks; electrolyte replacement and sports drinks; and teas and coffee without caffeine. If you have been diagnosed with a kidney disease, ask your doctor how much and what types of fluids you should drink to prevent dehydration. If you have kidney disease, drinking too much fluid can cause it build up in the your body and be dangerous to your health. If you have fever, muscle aching, or headache from a viral syndrome, you may useacetaminophen or ibuprofen, unless another medicine was prescribed for this.If you have chronic liver or kidney disease or ever had a stomach ulcer or GI bleeding, talk with your doctor before using these medicines. Don't take aspirin if you are younger than 18 and are ill with a fever.Aspirin raises the chance forsevere liver injury. Follow-up care Follow up with your health care provider if you don't get better in the next 24 to 48 hours. When to seek medical care Get prompt medical attention if any of theseoccur: Continued vomiting (cant keep liquids down) Frequent diarrhea (more than 5 times a day); blood (red or black color) or mucus in diarrhea Blood in vomit or stool Swollen abdomen or increasing abdominal pain Weakness, dizziness, or fainting Unusually drowsy or confused Reduced urine output or extreme thirst Fever of 100.4 F (38 C) oral or higher that does not get better with fever medication You have been given the following additional information: Syncope, Vasovagal Arrhythmia, Unspecified Dehydration (Adult) (Electronically signed by Anand Granda Dr. 04/02/2016 10:49)
--- NOTE | 2016-04-02 19:54 | ED MED RECONCILIATION SUMMARY ---
Patient: SUSANA GRECO Medication Reconciliation Report [facility] VisitID: [id number] [address] [place] [address] 80y, F Registration Date/Time: 04/01/2016 Weight: 90.7 kg Height/Length: 66 in. BMI: 32.3 ALLERGIES: Flagyl, Penicillins The patient's Home Medications are listed below: CONTINUE TAKING THE FOLLOWING MEDICATIONS: Cyclobenzaprine HCl Oral 10 mg Tramadol HCL Oral 50 mg THE FOLLOWING MEDICATIONS NEED TO BE RECONCILED: AmLODIPine Besylate Oral Atorvastatin Calcium Oral Azithromycin Oral The source(s) of the original Home Medication information: Not obtained. The following Medications were given to the patient in the Emergency Department: IV NS IV Fluids bolus 1000 mL wide open, administered: 04/02/2016 1:12:00 AM IV NS IV Fluids bolus 1000 mL wide open, administered: 04/02/2016 4:42:00 AM The following Medications were prescribed to the patient: Xarelto 20 mg1 PO q dayDisp # 15No refills. -- Anand Granda Dr.
== END 2016-04-02 07:10 | disposition home or self-care (01) ==
LOC: ED SRH 23:34
DX: R55 Syncope and collapse (principal); I48.91 Unspecified atrial fibrillation; E86.0 Dehydration; J15.9 Unspecified bacterial pneumonia; I10 Essential (primary) hypertension; K21.9 Gastro-esophageal reflux disease without esophagitis; Z88.0 Allergy status to penicillin; Z88.1 Allergy status to other antibiotic agents
CPT/HCPCS: 90004; 90100; 90616; 90617; 91320; 91556; 92610; 92720; 95059